=== PATIENT | female | born 1980 | race Caucasian/White ===

== ENCOUNTER 2018-07-14 15:46 | Emergency (ER) | payer BC ==
[~2018-07-14] VITALS: Ht 165.1 cm; Wt 97.5 kg
[~2018-07-14 15:46] MED LIST: ACETAMINOPHEN-1 EAC1 PO; AMOXICILLIN875 MG PO; BIRTH CONTROL; COLACE100 MG PO; FLEXERIL PO; IBUPROFEN 600600 M1; IBUPROFEN 800800 MG PO; LIDODERM 5%1 PATCH TRANSDERM; MEDROLDOSEPACK PO; NEURONTIN 300300 M1; NORCO 5-325 TA1 EACH PO; PROZAC 20 MG20 M1; ROBAXIN500 MG PO; SERTRALINE HCL50 MG PO; ULTRAM 50MG TAB50 MG PO; VICODIN 5-5001 EACH PO; WELLBUTRIN SR150 MG PO; XANAX 0.25 MG0.25 MG PO; XANAX 0.5 MG0.5 MG PO; ZANAFLEX2 M2 PO
[2018-07-14] MEDS ORDERED: ANTI DEPRESSANT (15:57)
[2018-07-14 16:06] LABS: ABSOLUTE EOSINOPHILS 0.1 thou/uL (0.0-0.7); ABSOLUTE LYMPHOCYTES 2.4 thou/uL (0.8-5.3); ABSOLUTE MONOCYTES 0.6 thou/uL (0.0-1.2); ABSOLUTE NEUTROPHILS 5.7 thou/uL (1.6-8.1); BASOPHILS 0.3 %; EOSINOPHILS 0.7 %; HEMATOCRIT 40.7 % (37.0-47.0); HEMOGLOBIN 13.8 gm/dL (12.0-15.0); LYMPHOCYTES 27.4 %; MCH 31.8 pg (26.0-34.0); MCHC 33.8 g/dL (28.0-37.0); MONOCYTES 7.3 %; MPV 8.1 fl. (7.2-11.1); NUCLEATED RBCS 0 /100WBC; PLATELET COUNT* 266 thou/uL (150-400); POLYS 64.3 %; RBC 4.34 mil/uL (4.20-5.00); RDW-CV 12.8 % (10.5-14.5); WBC 8.8 thou/uL (4.0-11.0)
[2018-07-14 16:24] LABS: ANION GAP 9 mmol/L (7-16); APTT 25.8 Seconds (25.0-31.3); BUN 17 mg/dL (7-18); CALCIUM 8.6 mg/dL (8.5-10.1); CHLORIDE 105 mmol/L (98-107); CO2 26 mmol/L (21-32); CREATININE 0.9 mg/dL (0.6-1.3); GLUCOSE 97 mg/dL (70-99); POTASSIUM 3.8 mmol/L (3.5-5.1); SODIUM 140 mmol/L (136-145)
[2018-07-14 16:40] LABS: ALKALINE PHOSPHATASE 98 U/L (46-116); CK-MB MASS 3.4 ng/mL (<0.5-3.6); LIPASE 68 U/L (73-393); MAGNESIUM 1.8 mg/dL (1.8-2.4); NT-PRO BRAIN NAT PEPTIDE 106 pg/mL (<300); SGOT 19 U/L (15-37); SGPT 20 U/L (30-65); TOTAL BILIRUBIN 1.2 mg/dL (<0.1-1.0); TOTAL PROTEIN 6.9 g/dL (6.4-8.2); TROPONIN-I LEVEL <0.06 ng/mL (<0.06)
[2018-07-14 16:55] VITALS: BP 120/85
--- NOTE | 2018-07-15 10:49 | EKG ---
[place] [address] ELECTROCARDIOGRAM REPORT Name: SANTANA NELSONBERLY Jan Room: [facility]#: [id number] Admission: 07/14/18 Attend Phys: Discharge: 07/14/18 Date of : 82 Report #: [id number] THIS REPORT FOR: //name// [facility] ED Test Date: 2018-07-14 Test Time: 15:51:30 Pat Name: NATHANIEL NELSON Department: Room: Gender: F [employer]: STEFANO : 1980 Requested By: Handy Farooq Order Number: [id number] MD: Eleazar Parrish Measurements Intervals [place] Rate: 73 P: 45 [place]: 148 QRS: 19 QRSD: 100 T: 14 QT: 387 QTc: 427 Interpretive Statements Sinus rhythm No previous ECG available for comparison Electronically Signed On 07-15-2018 10:49:21 CDT by Eleazar Parrish [email or web address] <ELECTRONICALLY SIGNED> By: Eleazar Parrish MD, [facility] 07/15/18 1049 1551 1551 Eleazar Parrish MD, FACC /EPI
== END 2018-07-14 16:56 | disposition home or self-care (01) ==
LOC: M.ERS 15:46
PROVIDERS: Family Medicine
DX: R10.13 Epigastric pain (principal); R07.89 Other chest pain; F17.210 Nicotine dependence, cigarettes, uncomplicated; Z88.8 Allergy status to other drugs, medicaments and biological substances

== ENCOUNTER 2019-05-27 19:41 | Emergency (ER) | payer BC ==
[~2019-05-27] VITALS: Ht 165.1 cm; Wt 99.8 kg
[~2019-05-27 19:41] MED LIST changes: +ANTI DEPRESSANT
[2019-05-27] MEDS ORDERED: VIBRID PO (20:03)
[2019-05-27 20:10] LABS: ABSOLUTE BASOPHILS 0.1 thou/uL (0.0-0.2); ABSOLUTE EOSINOPHILS 0.1 thou/uL (0.0-0.7); ABSOLUTE LYMPHOCYTES 3.8 thou/uL (0.8-5.3); ABSOLUTE MONOCYTES 0.8 thou/uL (0.0-1.2); ABSOLUTE NEUTROPHILS 6.9 thou/uL (1.6-8.1); BASOPHILS 1.2 %; EOSINOPHILS 0.5 %; HEMATOCRIT 39.3 % (37.0-47.0); HEMOGLOBIN 13.3 gm/dL (12.0-15.0); LYMPHOCYTES 32.3 %; MCH 31.4 pg (26.0-34.0); MCV 92.4 fL (80.0-100.0); MONOCYTES 7.1 %; NUCLEATED RBCS 0 /100WBC; PLATELET COUNT* 314 thou/uL (150-400); POLYS 58.9 %; RBC 4.25 mil/uL (4.20-5.00); RDW-CV 13.3 % (10.5-14.5); WBC 11.7 thou/uL (4.0-11.0)
[2019-05-27 20:16] LABS: CALCIUM 9.1 mg/dL (8.5-10.1); CREATININE 0.8 mg/dL (0.6-1.3); POTASSIUM 3.9 mmol/L (3.5-5.1)
[2019-05-27 20:21] LABS: TOTAL BILIRUBIN 0.5 mg/dL (<0.1-1.0); TOTAL PROTEIN 7.4 g/dL (6.4-8.2)
[2019-05-27 20:24] LABS: URINE BILIRUBIN NEGATIVE (Negative); URINE BLOOD 3+ (Negative); URINE CLARITY SL CLOUDY; URINE COLOR YELLOW; URINE GLUCOSE-RANDOM NEGATIVE (Negative); URINE KETONES NEGATIVE (Negative); URINE LEUKOCYTES-REFLEX 2+ (Negative); URINE NITRITE-REFLEX NEGATIVE (Negative); URINE PROTEIN TRACE (Negative); URINE UROBILINOGEN 0.2 E.U./dl (0.2-1.0)
[2019-05-27 20:32] LABS: SQUAMOUS >10 Many /LPF (0-3)
[2019-05-27 20:33] LABS: CASTS None Seen /LPF (None Seen); CRYSTALS None Seen /LPF (None Seen); URINE RBC >20 Many /HPF (0-2); URINE WBC-REFLEX 6-15 Few /HPF (0-5)
[2019-05-27] MEDS ORDERED: TRINATE TABLET1 EACH PO (21:59)
[2019-05-27] MEDS ORDERED: KEFLEX500 M1 PO (21:59)
[2019-05-27 23:35] VITALS: BP 0/0
== END 2019-05-27 23:38 | disposition home or self-care (01) ==
LOC: M.ERS 19:41
PROVIDERS: Nurse Practitioner Family
DX: O23.41 Unspecified infection of urinary tract in pregnancy, first trimester (principal); O46.91 Antepartum hemorrhage, unspecified, first trimester; O99.331 Smoking (tobacco) complicating pregnancy, first trimester; F17.210 Nicotine dependence, cigarettes, uncomplicated; F32.9 Major depressive disorder, single episode, unspecified; Z88.1 Allergy status to other antibiotic agents; Z90.89 Acquired absence of other organs; Z90.49 Acquired absence of other specified parts of digestive tract; Z3A.01 Less than 8 weeks gestation of pregnancy